=== PATIENT | male | born 1950 | race Hispanic/Latino ===

== ENCOUNTER 2025-08-17 05:39 | Day surgery (SDC) | payer OTHER ==
[2025-08-15 11:08] LABS: IMMATURE GRANULOCYTE ABSOLUTE 0.02 K/uL (0-1); NUCLEATED RED BLOOD CELLS 0.0 % (0.0-0.19); PLATELET COUNT (AUTO) 188 K/uL (130-400); RED BLOOD CELL COUNT(AUTO) 4.37 MIL/uL (4.50-6.20); RED CELL DISTRIBUTION WIDTH 13.1 % (11.0-15.5); WHITE BLOOD COUNT (AUTO) 6.9 K/uL (4.8-10.8)
[2025-08-15 11:09] LABS: APPEARANCE,URINE CLEAR (CLEAR); GLUCOSE, URINE (UA) NEGATIVE (NEGATIVE); LEUKOCYTE ESTERASE ,URINE NEGATIVE Leu/uL (NEGATIVE); NITRATE,URINE NEGATIVE (NEGATIVE); OCCULT BLOOD,URINE NEGATIVE (NEGATIVE)
[2025-08-15 11:13] VITALS: BP 174/59; PULSE 55; RESP 18; TEMP 97.5
[2025-08-15 11:13] LABS: ADD UA MICROSCOPIC NO
[2025-08-15 11:22] LABS: CREATININE 0.8 mg/dL (0.5-1.3); GLOMERULAR FILTR. RATE CALC 92.0 mL/min (>90); GLUCOSE,RANDOM 182.0 mg/dL (70-105); SODIUM SERUM 139.0 mmol/L (136-145); UREA NITROGEN, BLOOD 12.0 mg/dL (7-18)
[2025-08-15 11:34] LABS: INR 1.01 (0.85-1.15)
--- NOTE | 2025-08-15 12:04 | EKG ---
[facility] Test Date: 2025-08-15 Test Time: 10:59:50 Pat Name: LUIS EDUARDO GARAY Department: [facility] Room: Gender: M [employer]tr [employer] Driver: [id number] : 1950 Requested By: KRISS CARRASCO Order Number: [id number] Reading MD: Kel Tyson Measurements Intervals [place] Rate: 57 P: -36 AL: 224 QRS: 3 QRSD: 79 T: 126 QT: 421 QTc: 410 Interpretive Statements Sinus rhythm Prolonged AL interval Probable LVH with secondary repol abnrm Inferior infarct, old No previous ECG available for comparison Electronically Signed On 08-15-2025 13:17:23 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
--- NOTE | 2025-08-15 12:23 | HMCIMG ---
EXAM: CR Chest, 1 View. CLINICAL HISTORY: PRE OP COMPARISON: None provided. FINDINGS: LUNGS: The lungs show no infiltrate or other acute finding. Prominent interstitial markings may reflect a component of chronic interstitial lung disease. PLEURAL SPACES: No pleural effusion or pneumothorax. MEDIASTINUM: Prior sternotomy. The cardiomediastinal silhouette is within normal limits. BONES: No aggressive appearing osseous lesion seen. IMPRESSION: 1. No acute cardiopulmonary findings. /[place]
[~2025-08-17] VITALS: Ht 162.6 cm; Wt 80.7 kg
[2025-08-17] VITALS (11 sets, daily range): BP systolic 93–169; BP diastolic 46–68; PULSE 50–58; RESP 11–23; TEMP 97.3–97.5
[~2025-08-17 05:39] MED LIST: AMLO-257 PO; ASPI-1443 PO; METO-409 PO; VALS80TA30 PO
[2025-08-17] MEDS: 0.9%NACL 1000ML 1,000 ML IV SCH (06:37)
[2025-08-17] MEDS ORDERED: MIDAZOLAM HCL 1 MG/ML 2ML VIAL ONE (07:26)
[2025-08-17] MEDS ORDERED: LIDOCAINE HCL 400MG/20ML VIAL ONE (07:26)
[2025-08-17] MEDS ORDERED: IOHEXOL 350 MG/ML 100ML INFUS..BTL IV ONE ×3 (07:27→08:59)
[2025-08-17] MEDS ORDERED: NITROGLYCERIN 50MG VIAL ONE (07:27)
[2025-08-17] MEDS ORDERED: IOHEXOL-350 50ML VIAL IV ONE (07:27)
[2025-08-17] MEDS ORDERED: HEParin-NS 1,000 UNIT/500 ML 1,000 ML IV ONE (07:28)
[2025-08-17] MEDS ORDERED: HEParin-NS 1,000 UNIT/500 ML 500 ML IV ONE (08:32)
[2025-08-17] MEDS ORDERED: IOHEXOL-350 75 ML VIAL IV ONE (09:03)
[2025-08-17] MEDS ORDERED: 0.9%NACL 1000ML 1,000 ML IV SCH (10:00)
--- NOTE | 2025-08-17 10:22 | PRN ---
DATE OF PROCEDURE: 08/17/2025 PROCEDURE PERFORMED: LEFT HEART CATHETERIZATION, LEFT VENTRICULOGRAM, RIGHT AND LEFT SELECTIVE CORONARY ANGIOGRAM, INJECTION OF SVG TO THE RAMUS INTERMEDIATE, INJECTION OF GREENE GRAFT TO THE LAD, AORTIC ROOT INJECTION WHICH DOCUMENTED NO OTHER GRAFTS PRESENT. SUSPECTED OCCLUDED GRAFT X2 TO THE DISTAL RCA. RIGHT COMMON FEMORAL ANGIOGRAM INJECTION, PERCLOSE SUTURE CLOSURE OF THE RIGHT COMMON FEMORAL ARTERY. SHOP GIRL: Diallo Carrasco MD, [facility] INDICATION: Dyspnea on exertion and LVH and LV strain with a questionable ischemic changes versus LV strain on treadmill stress test PROCEDURE NOTE: After informed consent was obtained the patient was prepped and draped in the usual sterile fashion. A 6 [place] arterial sheath was inserted in the right femoral artery using a modified Seldinger technique with a front wall, first pass puncture. This was performed after fluoroscopic identification of bony landmarks to facilitate a more accurate puncture of the right common femoral artery. The arterial sheath was aspirated and flushed. A 6 [place] pigtail catheter was then advanced over a J-tipped guidewire to the ascending aorta and was prolapsed into the left ventricle. The catheter was aspirated and flushed and pressure measurements were obtained. A left ventriculogram was then performed in a 30 COELLO projection. A pullback procedure was then performed, and this catheter was removed over a J-tipped guidewire. A 6F JL-4 was then advanced to the ascending aorta over a J-tipped guidewire, was aspirated and flushed, and was used for selective left coronary angiograms in multiple obliquities. A JR-4 was advanced in a similar fashion to the ascending aorta over a J-tipped guidewire and was used for selective right coronary angiograms in multiple obliquities with findings as outlined below. The JR4 catheter was used for selective injection of the saphenous vein graft to the ramus intermediate. An IM-T catheter was used for selective injection of the left internal mammary graft to the LAD. An aortic root injection was performed with a pigtail catheter to assess for any remaining grafts which were not seen. A right common femoral angiogram was performed to assess suitability for Perclose suture closure and the Perclose device was deployed in standard fashion. Perclose suture closure was successful without bleeding or hematoma. The patient tolerated the procedure well and was returned to the holding area in stable condition. FINDINGS: LEFT HEART HEMODYNAMICS: The LVEDP was 15 dropping to 3 mm of mercury after intraventricular nitroglycerin. After LV-gram the LVEDP was 8 mm of mercury. LEFT VENTRICULOGRAM: A left ventriculogram in a 30 degree COELLO projection demonstrated a hyperdynamic LV with an LVEF greater than 70%. There was no angiographic MR. CORONARY ANGIOGRAM: LEFT MAIN: The left main was diffusely diseased with a proximally 50% stenosis. There was no dampening or ventricularization of the pressure waveform. LEFT ANTERIOR DESCENDING: The LAD was chronically occluded in its mid segment. The 1st diagonal had a 50% stenosis. The ongoing mid to distal LAD filled well via widely patent GREENE to the distal LAD. This also filled the 2nd diagonal and there was excellent surgical revascularization of the LAD. LEFT CIRCUMFLEX: The left circumflex was nondominant and small. The left circumflex had no significant discrete stenosis. RAMUS INTERMEDIATE BRANCH: The ramus intermediate branch filled well antegrade and was compromised by a 50% left main stenosis only. The ramus intermediate filled via a widely patent saphenous vein graft to the ramus intermediate branch. There was excellent surgical revascularization of the ramus intermediate which also retrograde gisela led a small left circumflex and OM1 system well. RIGHT CORONARY ARTERY: The right coronary artery was dominant and had a 50% ostial stenosis and a 30% stenosis in the proximal to mid segment. The ongoing distal RCA, PDA, and post erolateral ventricular branches were normal. GREENE GRAFT TO THE LAD: Widely patent with excellent surgical revascularization of the LAD and 2nd and distal diagonal branches. SVG TO THE RAMUS INTERMEDIATE BRANCH: The SVG to the ramus intermediate branch was widely patent with minor 20% plaques in the midbody. There was excellent surgical revascularization of the ramus intermediate branch. PRESUMED SVG TO THE PDA AND PLVB: There was no identifiable remaining SVG in the ascending aorta. A root injection demonstrated no evidence of other bypass grafts. IMPRESSION: Hyperdynamic LV with LVEF greater than 70%. No MR. No aortic stenosis. No aortic regurgitation. LVH and LV strain on EKG. 2/4 grafts widely patent with widely patent GREENE to the LAD and widely patent SVG to the ramus intermediate branch, with excellent surgical revascularization. Remaining occluded SVG x2 do not appear needed with nonobstructive disease in the 1st diagonal and ostial PDA. 50% ostial RCA stenosis (nonobstructive) RECOMMENDATION: Continued medical therapy. COMPLICATIONS OF PROCEDURE: None, the patient tolerated the procedure well and was returned to his room in stable condition. HEMOSTASIS: Failed Perclose procedure. Manual compression resulted in excellent hemostasis. ESTIMATED BLOOD LOSS: 10 mL. CONTRAST TOTAL: 265 mL DIALLO CARRASCO MD Aug 17, 2025 10:22
== END 2025-08-17 16:21 | disposition home or self-care (01) ==
LOC: DAH 05:39
PROVIDERS: ATTEND Internal Medicine Cardiovascular Disease
DX: R94.39 Abnormal result of other cardiovascular function study (principal); I25.118 Atherosclerotic heart disease of native coronary artery with other forms of angina pectoris; I25.810 Atherosclerosis of coronary artery bypass graft(s) without angina pectoris; I44.0 Atrioventricular block, first degree; E03.9 Hypothyroidism, unspecified; G47.33 Obstructive sleep apnea (adult) (pediatric); Z99.89 Dependence on other enabling machines and devices; K21.9 Gastro-esophageal reflux disease without esophagitis; F41.9 Anxiety disorder, unspecified; Z79.01 Long term (current) use of anticoagulants; J84.10 Pulmonary fibrosis, unspecified; I10 Essential (primary) hypertension; E78.5 Hyperlipidemia, unspecified; Z79.82 Long term (current) use of aspirin; Z79.899 Other long term (current) drug therapy
CPT/HCPCS: 80048; 83880; 85025; 85610; 85730; 81003; 36415; 71045; 93005; 93459; 99156; 99157 ×6; C1769; C1894 ×3; C1760; C1893; Q9965 ×2; J3010; J3490 ×2; J7030; J2250; J1644 ×2; Q9967 ×4; A4215; A4222; A4221; A4663; A4216; A4606; A4223 ×3